=== PATIENT | male | born 1980 | race Asian ===

== ENCOUNTER 2019-04-18 10:19 | Emergency (ER) | payer BC ==
[~2019-04-18] VITALS: Ht 167.6 cm; Wt 77.3 kg
[2019-04-18 10:20] VITALS: Ht 167.6 cm; Wt 77.3 kg
[2019-04-18] MEDS ORDERED: ULTRAM50 MG PO (11:16)
[2019-04-18 11:28] VITALS: BP 145/103
== END 2019-04-18 11:26 | disposition home or self-care (01) ==
LOC: D.ER 10:19
DX: S79.811A Other specified injuries of right hip, initial encounter (principal); S79.921A Unspecified injury of right thigh, initial encounter; W22.8XXA Striking against or struck by other objects, initial encounter; F17.210 Nicotine dependence, cigarettes, uncomplicated